=== PATIENT | male | born 1990 | race Two or more races ===

== ENCOUNTER 2024-10-09 17:54 | Emergency (ER) | payer OTHER ==
[~2024-10-09] VITALS: Ht 175.3 cm; Wt 72.6 kg
[2024-10-09 18:40] VITALS: BP 111/71; O2SAT 99
[2024-10-09] MEDS ORDERED: CLINDAMYCIN PHOSPHATE 150 MG/ML (600mg) IM STA (19:47)
[2024-10-09] MEDS ORDERED: CLINDAMYCIN PHOSPHATE 150 MG/ML (300mg) ONE (19:52)
== END 2024-10-09 19:58 | disposition home or self-care (01) ==
LOC: ER 17:56
DX: L02.423 Furuncle of right upper limb (principal); Z88.0 Allergy status to penicillin